=== PATIENT | male | born 1985 ===

== ENCOUNTER → 2017-07-23 | Outpatient (CLI) | payer OTHER | LOC: BMCIMAGING 11:18 | PROVIDERS: ATTEND Family Medicine | DX: M54.5 Low back pain (principal) ==

== ENCOUNTER 2018-07-06 14:39 | Emergency (ER) | payer SELFPAY ==
--- NOTE | 2018-07-06 15:50 | EDPHY ---
H & P Smoking Status: Never smoked Time Seen by Provider: 07/06/18 14:53 HPI/ROS: CHIEF COMPLAINT: Right forearm pain HISTORY OF PRESENT ILLNESS: 32-year-old [id number] male arrives via private vehicle. He was skiing, lost control and back and a tree accidentally. He sustained immediate pain to his middle forearm ulnar aspect. He also sustained blunt shoulder injury. Denies shoulder pain. 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 He denies: Paresthesia, sensory deficit, genitalia trauma, chest pain or trauma, back pain or trauma, head injury, nausea, vomiting, midline C-spine pain or injury. PRIMARY CARE PROVIDER: REVIEW OF SYSTEMS: 10 systems reviewed and negative with the exception of the elements mentioned in the history of present illness PAST MEDICAL/SURGICAL HISTORY: no anticoagulant use, no relevant medical/ surgical history SOCIAL HISTORY: denies alcohol use at time of incident PHYSICAL EXAM 1) GENERAL: Well-developed, well-nourished, alert and oriented. Appears to be in no acute distress. Answering questions appropriately. 2) HEAD: Normocephalic, atraumatic 3) HEENT: Pupils equal, round, reactive to light bilaterally. Negative Horners. Nasopharynx, oropharynx, clear. No deformity or angulation of nose. No septal hematoma. No rhinorrhea. No oral trauma. 4) NECK: No cervical collar is on. Posterior cervical spine is nontender, no stepoff, no effusion. Full range of motion which does not elicit any midline cervical spine pain, no posterior midline tenderness, no step-off. 5) LUNGS: Clear to auscultation bilaterally, no wheezes, no rhonchi, no retractions. No obvious signs of trauma. No chest wall pain. No flaring, no grunting. Moving symmetrically. No crepitus. 6) HEART: [Regular rate and rhythm, 7) ABDOMEN: No guarding, no rebound, no focal tenderness, no peritoneal signs, no signs of trauma, no ecchymosis 8) MUSCULOSKELETAL: Right upper extremity: Abrasion to the dorsal shoulder with full pain-free range of motion of the shoulder no step-off no deformity no pain with range of motion. Tender to palpation mid forearm particularly the ulnar aspect with no break in skin, no puncture wound, no tenting of tissue. Proximally distally nontender. Radial ulnar median nerve function intact distally. Elbow nontender. Compartments soft. Brisk pulses and capillary refill. Normal color normal temperature distally. No pain to the forearm with range of motion of the wrist and hand distally. Otherwise, Moving all extremities, no focal areas of tenderness, no obvious trauma. 9) BACK: No midline vertebral tenderness, no fluctuance, no step-off, no obvious trauma, no visual or palpable abnormality. 10) SKIN: No laceration. No abrasion DIFFERENTIAL DIAGNOSIS: In no particular order including but not limited to fracture, sprain, strain, compartment syndrome (Jose Lagunas) Constitutional: Initial Vital Signs Temperature (C) 36.7 C 07/06/18 14:42 Heart Rate 74 07/06/18 14:42 Respiratory Rate 16 07/06/18 14:42 Blood Pressure 122/77 H 07/06/18 14:42 O2 Sat (%) 97 07/06/18 14:42 O2 Delivery Mode Room Air Allergies/Adverse Reactions: No Known Allergies Allergy (Unverified 07/06/18 15:50) Home Medications: Medication Instructions Recorded Prednisone 07/06/18 traMADol [Ultram 50 mg (*)] 50 mg PO Q6 PRN #10 tab 07/06/18 MDM/Departure - MDM Imaging Results: Images reviewed myself (Jose Lagunas) ED Course/Re-evaluation: 3:30 p.m.: Consultation with on-call orthopedics PA Glenda Leonard who recommended immobilization with sugar-tong splint, follow up in office this week. Today is Saturday. Patient has been splinted. No evidence of compartment syndrome. He has been given strict orthopedic and compartment syndrome precautions instructions. Will follow up with Dr. Mina Melendez later this week. Given analgesia. He feels comfortable being discharged. Care of patient under supervision of secondary supervising physician Dr Huddleston. (Jose Lagunas) The patient was evaluated and managed by the physician licensed loan officer assistant. I have reviewed this chart and I agree with the findings and plan of care as documented , as indicated by my signature. I am the secondary supervising physician. ( Louise Huddleston) - Depart Disposition: Home, Routine, Self-Care Clinical Impression: Fracture, ulna, Skiing accident Condition: Good Instructions: Arm Fracture in Adults (ED) Additional Instructions: Return to the ER immediately if you experience discoloration, have worsening pain, numbness, tingling, or any other symptoms that concern you. If you received x-rays in the emergency department today, be advised, that ligamentous , tendon, muscular, and other non-bony injury cannot be fully ruled out. Try to keep your affected extremity elevated above the level of your chest, and keep cold packs on the affected area, for the next 48 hours. Prescriptions: traMADol [Ultram 50 mg (*)] 50 mg PO Q6 PRN #10 tab PRN Reason: Pain, Moderate Referrals: Mina Melendez MD [Medical Doctor] - 1-2 days without fail
[2018-07-06 16:16] VITALS: BP 115/85
== END 2018-07-06 16:14 | disposition home or self-care (01) ==
PROC: 2W3CX1Z Immobilization of Right Lower Arm using Splint (ICD-10-PCS; principal; 2018-07-06)
DX: S52.251A Displaced comminuted fracture of shaft of ulna, right arm, initial encounter for closed fracture (principal); V00.322A Snow-skier colliding with stationary object, initial encounter; Y93.23 Activity, snow (alpine) (downhill) skiing, snowboarding, sledding, tobogganing and snow tubing; Y92.838 Other recreation area as the place of occurrence of the external cause; Y99.9 Unspecified external cause status
CPT/HCPCS: A4565